=== PATIENT | female | born 1995 | race Caucasian/White ===

== ENCOUNTER 2018-04-16 18:13 | Emergency (ER) | payer BC ==
[2018-04-16 18:29] VITALS: BP 126/86
--- NOTE | 2018-04-16 18:58 | UC ---
Eye Complaint HPI - HPI Summary HPI Summary: SWOLLEN RIGHT UPPER EYELID X 1 DAY WOKE UP THIS MORNING WITH THE SWELLING AND REDNESS OF RIGHT UPPER EYELID NO EYE PAIN , NO CHANGE IN VISION , NO EYE DISCHARGE, NO FEVER, NO CHILLS NO KNOWN INSECT BITES - History of Current Complaint Chief Complaint: UCEye Stated Complaint: EYELID COMPLAINT Time Seen by Provider: 04/16/18 18:49 Hx Obtained From: Patient Hx Last Menstrual Period: iud ?: No Onset/Duration: Gradual Onset, Lasting Days - 1, Still Present Timing: Constant Severity Initially: Mild Severity Currently: Moderate Pain Intensity: 0 Location of Injury: Eye Lid (upper) - RIHT SIDE Aggravating Factor(s): Nothing Alleviating Factor(s): Nothing Associated Signs And Symptoms: Positive: Swelling - RIGHT UPPER EYELID. Negative: Photophobia, Drainage (Clear), Drainage (Purulent), Vision Impairment Bilateral, Vision Impairment Right, Vision Impairment Left, Fever - Allergies/Home Medications Allergies/Adverse Reactions: Allergies Allergy/AdvReac Type Severity Reaction Status Date / Time No Known Allergies Allergy Verified 04/16/18 18:29 PMH/Surg Hx/FS Hx/Imm Hx Previously Healthy: Yes - Surgical History Surgical History: None Surgery Procedure, Year, and Place: denies - Family History Known Family History: Negative: Diabetes - Social History Alcohol Use: Occasionally Substance Use Type: None Smoking Status (MU): Never Smoked Tobacco Review of Systems Constitutional: Negative Skin: Negative ENT: Negative Respiratory: Negative Cardiovascular: Negative Gastrointestinal: Negative Genitourinary: Negative Is Patient Immunocompromised?: No All Other Systems Reviewed And Are Negative: Yes Physical Exam Triage Information Reviewed: Yes Appearance: Well-Appearing, No Pain Distress, Well-Nourished Vital Signs: Initial Vital Signs Temp 99.1 F 04/16/18 18:22 Pulse 97 04/16/18 18:22 Resp 20 04/16/18 18:22 BP 126/86 04/16/18 18:22 Pulse Ox 100 04/16/18 18:22 Vital Signs Reviewed: Yes Eye Exam: Normal Eyes: Positive: Conjunctiva Clear, Other: - RIGHT UPPER EYELID: + ERYTHEMA, SWELLING, NO TENDERNESS, ENT Exam: Normal ENT: Positive: Normal ENT inspection, Hearing grossly normal, Pharynx normal Neck exam: Normal Neck: Positive: Supple, Nontender, No Lymphadenopathy Respiratory: Positive: Chest non-tender, Lungs clear, Normal breath sounds Cardiovascular: Positive: RRR, No Murmur, Pulses Normal Eye Complaint Course/Dx - Differential Dx/Diagnosis Provider Diagnoses: PERIORBITAL CELLULITIS Discharge - Sign-Out/Discharge Documenting (check all that apply): Patient Departure All imaging exams completed and their final reports reviewed: No Studies - Discharge Plan Condition: Stable Disposition: HOME Prescriptions: Cephalexin CAP* [Keflex CAP*] 500 mg PO TID #30 cap Patient Education Materials: Periorbital Cellulitis in Adults (ED) [facility] - 3 Days Additional Instructions: CELLULITIS VS INSECT BITE - Billing Disposition and Condition Condition: STABLE Disposition: Home
== END 2018-04-16 19:05 | disposition home or self-care (01) ==
LOC: UCEAST 18:13
DX: L03.213 Periorbital cellulitis (principal)
CPT/HCPCS: 99202; G0463

== ENCOUNTER 2018-04-17 10:41 | Emergency (ER) | payer BC ==
[2018-04-17 10:50] VITALS: BP 107/72
--- NOTE | 2018-04-17 11:08 | UC ---
Skin Complaint HPI - HPI Summary HPI Summary: 22 yo female presents with RIGHT eye swelling. She tells me that she was seen here yesterday for what was dx'd as periorbital cellulitis. She was given keflex and advised to return if her symptoms did not improve. She is here today because she thinks her swelling a little worse than yesterday. She is able to open her eye and has no vision changes. She does not wear contact and denies injury. Denies fever or chills - History of Current Complaint Chief Complaint: UCEye Time Seen by Provider: 04/17/18 11:08 Stated Complaint: RECHECK EYE ISSUE Hx Obtained From: Patient Hx Last Menstrual Period: bcp Onset/Duration: Sudden Onset Skin Exposure Onset/Duration: Hours Ago Onset Severity: Mild Current Severity: Mild Pain Intensity: 2 Pain Scale Used: 0-10 Numeric - Allergy/Home Medications Allergies/Adverse Reactions: Allergies Allergy/AdvReac Type Severity Reaction Status Date / Time No Known Allergies Allergy Verified 04/17/18 10:50 Review of Systems Constitutional: Negative Skin: Negative Eyes: Other - Right eye swelling ENT: Negative Respiratory: Negative Cardiovascular: Negative Neurovascular: Negative Neurological: Negative Psychological: Negative All Other Systems Reviewed And Are Negative: Yes PMH/Surg Hx/FS Hx/Imm Hx - Additional Past Medical History Additional PMH: None Previously Healthy: Yes - Surgical History Surgical History: None Surgery Procedure, Year, and Place: denies - Family History Known Family History: Negative: Diabetes - Social History Occupation: Student Lives: Dormitory/Roommates Alcohol Use: Occasionally Substance Use Type: None Smoking Status (MU): Never Smoked Tobacco Physical Exam - Summary Physical Exam Summary: GENERAL: WDWN. No pain distress. SKIN: No rashes, sores, lesions, or open wounds. HEENT: Head: AT/NC Eyes: EOM intact without pain. PERRLA. RIGHT EYE: Moderate periorbital edema with mild erythema. NTTP. No scleral injection or discharge. Conjunctiva without erythema or inflammation. She is able to actively open her right eye without pain. RIGHT EYE: Conjunctiva clear without inflammation or discharge. No FBs appreciated Nose: NTTP maxillary and frontal sinus. NECK: Supple. Nontender. No lymphadenopathy. CHEST: No accessory muscle use. Breathing comfortably and in no distress. CV: Pulses intact. Cap refill <2seconds NEURO: Alert. PSYCH: Age appropriate behavior. Triage Information Reviewed: Yes Vital Signs: Initial Vital Signs Temp 98.2 F 04/17/18 10:47 Pulse 67 04/17/18 10:47 Resp 16 04/17/18 10:47 BP 107/72 04/17/18 10:47 Pulse Ox 100 04/17/18 10:47 Course/Dx - Course Course Of Treatment: Periorbital cellulitis of right eye. She is afebrile, site is NTTP, and can open her eye without pain. Will stop her keflex and start her on augmentin and prednisone. She was given 4mg of dexamethasone in the clinical course. Advised to f/u tomorrow if symptoms have no change or worsen. - Diagnoses Provider Diagnoses: Right periorbital cellulitis Discharge - Sign-Out/Discharge Documenting (check all that apply): Patient Departure All imaging exams completed and their final reports reviewed: No Studies - Discharge Plan Condition: Stable Disposition: HOME Prescriptions: Amoxicillin/Clavulanate TAB* [Augmentin TAB 875*] 875 mg PO BID #20 tab predniSONE TAB* [Deltasone 20 MG TAB*] 20 mg PO BID #10 tab Patient Education Materials: Periorbital Cellulitis in Adults (ED) Referrals: [facility] [Primary Care Provider] - Additional Instructions: If you develop a fever, shortness of breath, chest pain, new or worsening symptoms - please call your PCP or go to the ED. 1) If your eye does not improve or is worse tomorrow please return to Urgent Care for further evaluation - Billing Disposition and Condition Condition: STABLE Disposition: Home
[2018-04-17] MEDS ORDERED: Dexamethasone TAB* 4 MG PO ONE (11:16)
== END 2018-04-17 11:29 | disposition home or self-care (01) ==
LOC: UCEAST 10:41
DX: Z51.89 Encounter for other specified aftercare (principal); L03.213 Periorbital cellulitis
CPT/HCPCS: 99212; G0463; J8540